=== PATIENT | female | born 1970 | race Caucasian/White ===

== ENCOUNTER 2016-08-20 09:36 | Emergency (ER) | payer SELFPAY ==
[~2016-08-20] VITALS: Ht 165.1 cm; Wt 70.0 kg
[2016-08-20 09:40] VITALS: Ht 165.1 cm; Wt 70.0 kg
[2016-08-20] MEDS ORDERED: CLOT30CR24 TOP (10:14)
[2016-08-20] MEDS ORDERED: CEPH-443 PO (10:14)
[2016-08-20] MEDS ORDERED: TRIA15OI9 TOP (10:15)
--- NOTE | 2016-08-20 10:27 | ERD ---
ER Documentation Chief Complaint Date/Time DATE: 08/20/16 TIME: 10:24 Chief Complaint Complains of swelling and blisters to the hands HPI This is a 46-year-old female presents to the ER complaining of bilateral hand dryness, itchiness and rash. Patient has had this rash over the last 6 months and it intermittently gets worse. She states that she has gone to the doctor for this in the past and they only gave her Tylenol. Patient has had this over the last few years intermittently, she states that antifungal cream patient denies any fevers or chills. She denies any trauma to the hands she denies any contact with chemicals or new substances. Patient is stating that the area is so itchy that sometimes any bleeds from the scratching. Patient noticed some yellow discharge from her third digit that started 2 days ago. ROS 12 point review of systems was done, all negative except per HPI. Medications Home Meds Active Scripts Triamcinolone Acetonide (Triamcinolone Acetonide) 0.5% - 15 Gm Oint..gm., 1 APPLIC TOP BID for 3 Days, #1 TUB Prov:SARA DAVIS 08/20/16 Clotrimazole* (Clotrimazole* AF) 1% - 30 Gm Cream.gm., 1 APPLIC TOP BID for 7 Days, TUB Prov:SARA DAVIS 08/20/16 Cephalexin* (Keflex*) 500 Mg Capsule, 500 MG PO QID for 7 Days, CAP Prov:RYANCINTHIASARA C 08/20/16 Allergies Allergies: Coded Allergies: No Known Allergy (Unverified , 08/20/16) PMhx/Soc Medical and Surgical Hx: pt denies Medical Hx, pt denies Surgical Hx Hx Alcohol Use: No Hx Substance Use: No Hx Tobacco Use: No Smoking Status: Never smoker Physical Exam Vitals Vital Signs Date Time Temp Pulse Resp B/P Pulse Ox O2 Delivery O2 Flow Rate FiO2 08/20/16 09:40 98.3 65 20 187/92 99 Physical Exam GENERAL: The patient is well developed and appropriate for usual state of health , in no apparent distress. HEENT: Atraumatic CHEST: Clear to auscultation bilaterally. There are no rales, wheezes or rhonchi. HEART: Regular rate and rhythm. No murmurs, clicks, rubs or gallops. NEURO: Alert and oriented. SKIN: Patient has scaly skin on palms of bilateral hands with areas of excoriation. There is redness and yellow discharge of the third distal digit. No lymphatic streaking fluctuance or abscess formation. Procedures/MDM Differential Diagnosis: dermatitis, allergic urticaria, viral exanthem, insect bite, fungal infectioN ,viral exanthem, hand foot mouth disease, , impetigo, cellulitis, abscess, tata janusz syndrome, meningocemia, necrotizing fasciitis. This is a 46-year-old female presents to the ER with a long- standing history of bilateral hand dryness, rash. This appears to be eczema, patient will be sent home with triamcinolone and Keflex that she does appear to have a bacterial infection likely secondary from scratching area. Patient requested antifungal cream and she states this worked, suspicion for fungal infection is lower at this time however patient will be getting cream to try at home. Patient for cellulitis or abscess or deep space infection is low, patient is afebrile and well-appearing. She is stable for outpatient follow- up. She is to follow-up with her primary care doctor within 1-2 days return to ER sooner if symptoms worsen. My medical decision making was shared with the patient she understands and agrees with plan Departure Diagnosis: Primary Impression: Rash Condition: Stable Patient Instructions: Atopic Dermatitis (Eczema) Additional Instructions: Llame al doctor ULISSES y hudson stephanie MARIE PARA DENTRO DE 1-2 CRAWFORD.Dgale a la secretaria que nosotros le instruimos hacer esta marie.Avise o llame si del cid condicin se empeora antes de la marie. Regresa aqui si peor o no mejor. NECESITA MICHAELA UN DERMATOLOGO! SARA DAVIS Aug 20, 2016 10:27
== END 2016-08-20 10:23 | disposition home or self-care (01) ==
LOC: FTE 09:36
DX: R21 Rash and other nonspecific skin eruption (principal)
CPT/HCPCS: 99284